=== PATIENT | male | born 1955 | race Caucasian/White ===

== ENCOUNTER 2020-09-10 10:07 | Outpatient (CLI) | payer MEDICARE, OTHER | END 2020-09-10 10:08 | disposition home or self-care (01) | LOC: BICRAD 10:07 | PROVIDERS: ATTEND Physician Assistant | DX: M25.561 Pain in right knee (principal); M25.562 Pain in left knee; M17.0 Bilateral primary osteoarthritis of knee ==

== ENCOUNTER 2020-10-12 08:05 | Outpatient (CLI) | payer MEDICARE, OTHER | END 2020-10-12 08:06 | disposition home or self-care (01) | LOC: BICULT 08:05 | PROVIDERS: ATTEND Physician Assistant | DX: Z13.6 Encounter for screening for cardiovascular disorders (principal); I71.4 Abdominal aortic aneurysm, without rupture | CPT/HCPCS: 76775 ==

== ENCOUNTER 2021-11-16 11:00 | Inpatient (IN) | payer MEDICARE, OTHER ==
[2021-11-18 13:13] LABS: #Eosinphils 0.2 10x3/uL (0.0-0.5); #Monocytes 0.4 10x3/uL (0.0-1.1); #Neutrophils 3.1 10x3/uL (1.5-8.4); %Basophils 0.3 % (0.0-2.0); %Eosinophils 3.3 % (0.0-6.0); %Lymphocytes 36.1 % (18.0-47.0); %Monocytes 7.4 % (0.0-10.0); %Neutrophils 52.6 % (40.0-75.0); Bilirubin Neg (Negative); Blood, Urine Negative (Negative); Clarity Clear (Clear); Glucose, Urine (Dipstick) Normal (Negative); Hemoglobin 14.7 g/dL (13.5-17.5); Ketone, Urine Negative (Negative); Leukocyte Negative (Negative); Mean Corpuscular HGB CONC 33.9 g/dL (32.0-36.0); Mean Corpuscular Hemoglobin 31.9 pg (27.0-33.0); Mean Corpuscular Volume 93.9 fl (81.2-95.1); Mean Platelet Volume 11.3 fl (7.4-10.4); Nitrite Negative (Negative); Platelet Count 156 10x3/uL (150-450); Protein, Urine (Dipstick) Negative (Neg-Trace); Red Blood Cell (RBC) Count 4.61 10x6/uL (4.32-5.72); Specific Gravity, Urine 1.025 (1.002-1.036); Urobilinogen Normal mg/dL (Less than 2); White Blood Cell (WBC) Count 5.8 10x3/uL (3.5-10.5)
[2021-11-18 13:26] LABS: Bacteria/HPF 1+ HPF (None Seen); Mucous/LPF 1+ LPF (<2+); RBC/HPF 0-3 HPF (0-3); Squamous Epithelial 0-3 HPF (0-3); WBC/HPF 0-3 HPF (0-3)
[2021-11-18 13:30] LABS: PTT 25.3 sec (22.0-33.0); Prothrombin Time 10.4 sec (9.5-12.1)
[2021-11-18 13:51] LABS: ALT (SGPT) 17 U/L (8-55); AST (SGOT) 16 U/L (5-34); Albumin 4.6 g/dL (3.4-4.8); Alkaline Phosphatase 51 U/L (40-110); Anion Gap 14 mmol/L (10-20); BUN (Urea Nitrogen) 12 mg/dL (8.4-25.7); Bilirubin, Total 0.6 mg/dL (0.2-1.2); Calc. Creatinine Clearance 0 mL/min (70-130); Calcium 9.5 mg/dL (7.8-10.44); Carbon Dioxide 25 mmol/L (23-31); Chloride 106 mmol/L (98-107); Globulin 2.2 g/dL (2.4-3.5); Glucose 93 mg/dL (80-115); Protein, Total 6.8 g/dL (5.8-8.1); Sodium 141 mmol/L (136-145)
[2021-11-23] MEDS ORDERED: SUGAMMADEX SODIUM 200 MG/2 ML VIAL ONE (06:57)
[2021-11-23] MEDS ORDERED: fentaNYL Citrate/PF 100 MCG/2 ML SYRINGE ONE (06:57)
[2021-11-23] MEDS ORDERED: HYDROmorphone 2 MG/ML VIAL ONE (06:57)
[2021-11-23] MEDS ORDERED: Phenylephrine 10 MG/ML VIAL ONE (06:57)
[2021-11-23] MEDS ORDERED: Levofloxacin 500 mg/D5W 100 ml Premix Bag ONE (07:06)
[2021-11-23] MEDS ORDERED: Sodium Chloride 0.9% 100 ML ONE (07:07)
[2021-11-23] MEDS ORDERED: B & O ONE (07:07)
[2021-11-23] MEDS ORDERED: ceFOXitin 1 GM VIAL ONE ×4 (07:07→13:29)
[2021-11-23] MEDS ORDERED: Ketamine 50 MG/ML (10ML VIAL) ONE (07:21)
[2021-11-23] MEDS ORDERED: Midazolam HCl 2 mg/2 ml Vial ONE (07:21)
[2021-11-23] MEDS ORDERED: Vecuronium 10 MG VIAL ONE (07:40)
[2021-11-23] MEDS ORDERED: Dexamethasone 20 MG/5 ML VIAL ONE (07:40)
[2021-11-23] MEDS ORDERED: Bupivacaine HCl 0.5%/Epinephrine 1:200,000/PF 30 ml Vial ONE (07:40)
[2021-11-23] MEDS ORDERED: PROPOFOL 200 MG/20 ML VIAL ONE (07:40)
[2021-11-23] MEDS ORDERED: Rocuronium Bromide 10 MG/ML (10ML VIAL) ONE (07:40)
[2021-11-23] MEDS ORDERED: Ondansetron PF 4 MG/2 ML Vial ONE (07:40)
[2021-11-23] MEDS ORDERED: Lidocaine 1% PF 5 ML VIAL ONE (07:40)
[2021-11-23] MEDS ORDERED: ePHEDrine 50 MG/ML VIAL ONE (07:40)
[2021-11-23] MEDS ORDERED: Bupivacaine 0.25% HCL 30 ML VIAL ONE (07:55)
[2021-11-23] MEDS ORDERED: Lidocaine 1% w/Epinephrine 1:100K 20 ML VIAL ONE (07:55)
[2021-11-23] MEDS ORDERED: Albumin 5% 250 ML ONE (13:11)
[2021-11-23] MEDS ORDERED: Promethazine HCl 25 MG/ML VIAL IVPB PRN (13:57)
[2021-11-23] MEDS ORDERED: Meperidine HCl/PF 25 MG/ML VIAL SLOW IVP PRN (13:57)
[2021-11-23] MEDS ORDERED: HYDROmorphone 2 MG/ML VIAL SLOW IVP PRN (13:57)
[2021-11-23] MEDS ORDERED: Ondansetron HCl/PF 4 MG/2 ML Vial IVP PRN (13:57)
[2021-11-23] MEDS ORDERED: HYDROcodone/Acetaminophen 10/325 mg Tablet PO PRN (14:36)
[2021-11-23] MEDS ORDERED: hydrALAZINE 20 MG/ML VIAL SLOW IVP PRN ×2 (14:36)
[2021-11-23] MEDS ORDERED: Morphine 2 MG/ML VIAL SLOW IVP PRN (14:36)
[2021-11-23] MEDS ORDERED: Oxybutynin 5 MG TAB PO PRN (14:36)
[2021-11-23] MEDS ORDERED: diphenhydrAMINE 50 MG/ML VIAL IVP PRN (14:36)
[2021-11-23] MEDS ORDERED: Acetaminophen 500 MG TAB PO PRN (14:36)
[2021-11-23] MEDS ORDERED: Phenazopyridine HCl 100 MG TAB PO PRN (14:47)
[2021-11-23] MEDS ORDERED: Fentanyl 100 MCG/2 ML VIAL ONE (14:47)
[2021-11-23 15:23] LABS: #Lymphocytes 0.6 thou/uL (1.20-3.40); #Monocytes 0.4 thou/uL (0.11-0.59); #Neutrophils 12.4 thou/uL (1.40-6.50); %Basophils 0.1 % (0.0-1.0); %Eosinophils 0.2 % (0.0-10.0); %Lymphocytes 4.5 % (21.0-51.0); %Monocytes 3.2 % (0.0-10.0); Mean Corpuscular HGB CONC 33.2 g/dL (32.0-36.0); Mean Corpuscular Hemoglobin 32.7 pg (27.0-31.0); Mean Corpuscular Volume 98.5 fL (78.0-98.0); Mean Platelet Volume 9.1 fL (7.4-10.4); Platelet Count 142 thou/uL (130-400); RBC Distribution Width 12.4 % (11.5-14.5); Red Blood Cell (RBC) Count 4.28 mill/uL (4.70-6.10); White Blood Cell (WBC) Count 13.5 thou/uL (4.8-10.8)
[2021-11-23 15:43] LABS: Anion Gap 16 mmol/L (10-20); BUN (Urea Nitrogen) 9 mg/dL (8.4-25.7); Calc. Creatinine Clearance 115 mL/min (70-130); Calcium 8.7 mg/dL (7.8-10.44); Carbon Dioxide 23 mmol/L (23-31); Chloride 107 mmol/L (98-107); Glucose 162 mg/dL (80-115); Potassium 4.1 mmol/L (3.5-5.1); Sodium 142 mmol/L (136-145)
[2021-11-23 16:44] VITALS: BMI 28.3
[2021-11-23] MEDS: Morphine 4 MG/ML VIAL SLOW IVP PRN ×2 (17:18→23:24)
[2021-11-23] MEDS: Sodium Chloride 0.9% 1,000 ML IV SCH ×2 (18:05→23:16)
[2021-11-23] MEDS: Ketotifen Fumarate 0.025% Ophth Soln 5 ml Bottle EA EYE PRN (18:30)
[2021-11-23] MEDS: Ondansetron PF 4 MG/2 ML Vial IVP PRN (19:23)
[2021-11-23] MEDS: Docusate 100 MG CAP PO SCH (20:27)
[2021-11-23] MEDS: Famotidine/PF 20 mg/2ml Vial SLOW IVP SCH (20:27)
[2021-11-24] MEDS: Morphine 4 MG/ML VIAL SLOW IVP PRN (04:11)
[2021-11-24] MEDS: Ketotifen Fumarate 0.025% Ophth Soln 5 ml Bottle EA EYE PRN (04:12)
[2021-11-24 05:30] LABS: #Lymphocytes 1.6 thou/uL (1.20-3.40); #Neutrophils 7.3 thou/uL (1.40-6.50); %Basophils 0.2 % (0.0-1.0); %Eosinophils 0.1 % (0.0-10.0); %Lymphocytes 15.9 % (21.0-51.0); %Monocytes 9.8 % (0.0-10.0); %Neutrophils 73.8 % (42.0-75.0); Hemoglobin 12.7 g/dL (14.0-18.0); Mean Corpuscular HGB CONC 32.3 g/dL (32.0-36.0); Mean Corpuscular Hemoglobin 32.6 pg (27.0-31.0); Platelet Count 131 thou/uL (130-400); RBC Distribution Width 12.6 % (11.5-14.5); White Blood Cell (WBC) Count 9.9 thou/uL (4.8-10.8)
[2021-11-24 05:36] LABS: Anion Gap 12 mmol/L (10-20); BUN (Urea Nitrogen) 9 mg/dL (8.4-25.7); Calc. Creatinine Clearance 122 mL/min (70-130); Calcium 8.8 mg/dL (7.8-10.44); Carbon Dioxide 27 mmol/L (23-31); Chloride 107 mmol/L (98-107); Glucose 113 mg/dL (80-115); Sodium 142 mmol/L (136-145)
[2021-11-24] MEDS: HYDROcodone/Acetaminophen 10/325 mg Tablet PO PRN ×5 (06:24→23:24)
[2021-11-24] MEDS: Sodium Chloride 0.9% 1,000 ML IV SCH (06:25)
[2021-11-24] MEDS: cefTRIAXone\\ROCEPHIN 1 GM in Sodium Chloride 0.9% 100 ML IVPB SCH (06:25)
[2021-11-24] MEDS: Famotidine/PF 20 mg/2ml Vial SLOW IVP SCH ×2 (08:25→20:18)
[2021-11-24] MEDS: Docusate 100 MG CAP PO SCH ×2 (08:25→20:18)
[2021-11-24] MEDS: Losartan 25 MG TAB PO SCH (08:25)
[2021-11-24] MEDS: Ketorolac Tromethamine 30 MG/ML VIAL IVP SCH ×3 (08:25→20:18)
[2021-11-25] MEDS: Ketorolac Tromethamine 30 MG/ML VIAL IVP SCH ×3 (01:06→15:01)
[2021-11-25] MEDS: cefTRIAXone\\ROCEPHIN 1 GM in Sodium Chloride 0.9% 100 ML IVPB SCH (06:12)
[2021-11-25] MEDS: HYDROcodone/Acetaminophen 10/325 mg Tablet PO PRN (06:12)
[2021-11-25 06:14] LABS: #Eosinphils 0.1 thou/uL (0.0-0.7); #Lymphocytes 1.9 thou/uL (1.20-3.40); #Monocytes 0.7 thou/uL (0.11-0.59); %Basophils 0.1 % (0.0-1.0); %Eosinophils 1.1 % (0.0-10.0); %Lymphocytes 19.5 % (21.0-51.0); %Monocytes 7.3 % (0.0-10.0); Hemoglobin 12.2 g/dL (14.0-18.0); Mean Corpuscular HGB CONC 33.3 g/dL (32.0-36.0); Mean Corpuscular Hemoglobin 33.6 pg (27.0-31.0); Mean Platelet Volume 8.9 fL (7.4-10.4); Platelet Count 120 thou/uL (130-400); RBC Distribution Width 12.4 % (11.5-14.5); Red Blood Cell (RBC) Count 3.64 mill/uL (4.70-6.10); White Blood Cell (WBC) Count 9.8 thou/uL (4.8-10.8)
[2021-11-25 06:53] LABS: Anion Gap 11 mmol/L (10-20); BUN (Urea Nitrogen) 8 mg/dL (8.4-25.7); Calc. Creatinine Clearance 129 mL/min (70-130); Calcium 8.5 mg/dL (7.8-10.44); Carbon Dioxide 29 mmol/L (23-31); Chloride 103 mmol/L (98-107); Glucose 114 mg/dL (80-115); Potassium 3.8 mmol/L (3.5-5.1); Sodium 139 mmol/L (136-145)
[2021-11-25] MEDS: Losartan 25 MG TAB PO SCH (09:15)
[2021-11-25] MEDS: Docusate 100 MG CAP PO SCH (09:15)
[2021-11-25] MEDS: Famotidine/PF 20 mg/2ml Vial SLOW IVP SCH (09:16)
[2021-11-25] MEDS: Ondansetron PF 4 MG/2 ML Vial IVP PRN (09:16)
[2021-11-25 17:34] VITALS: BP 136/88; TEMP 97.8
== END 2021-11-25 17:55 | disposition home or self-care (01) | DRG 708 ==
LOC: EDSTATUS 11-21 16:43 → SURG A 11-23 05:48
PROVIDERS: ADMIT Urology; ATTEND Urology
PROC: 0VT04ZZ Resection of Prostate, Percutaneous Endoscopic Approach (ICD-10-PCS; principal; 2021-11-23)
PROC: 0VT34ZZ Resection of Bilateral Seminal Vesicles, Percutaneous Endoscopic Approach (ICD-10-PCS; 2021-11-23)
PROC: 0DNW4ZZ Release Peritoneum, Percutaneous Endoscopic Approach (ICD-10-PCS; 2021-11-23)
PROC: 8E0W4CZ Robotic Assisted Procedure of Trunk Region, Percutaneous Endoscopic Approach (ICD-10-PCS; 2021-11-23)
PROC: 0VTQ4ZZ Resection of Bilateral Vas Deferens, Percutaneous Endoscopic Approach (ICD-10-PCS; 2021-11-23)
DX: C61 Malignant neoplasm of prostate (principal); Z20.822 Contact with and (suspected) exposure to COVID-19; E66.01 Morbid (severe) obesity due to excess calories; K66.0 Peritoneal adhesions (postprocedural) (postinfection); I10 Essential (primary) hypertension; R35.1 Nocturia; N40.0 Benign prostatic hyperplasia without lower urinary tract symptoms; Z90.49 Acquired absence of other specified parts of digestive tract; Z68.28 Body mass index [BMI] 28.0-28.9, adult; Z79.899 Other long term (current) drug therapy; Z87.891 Personal history of nicotine dependence
CPT/HCPCS: 36415; 80048; 80053; 81001; 82570; 85025; 85610; 85730; 86850; 86900; 86901; 87086; 88305; 88309; 88341; 88342; C1713; C1776; J0694; J0696; J1100; J1170; J1885; J1956; J2250; J2270; J2370; J2405; J2704; J3010; J3490; J7050; P9045; S0020; S0028; U0003; U0005

== ENCOUNTER 2021-11-18 11:58 | Outpatient (CLI) | payer MEDICARE, OTHER | END 2021-11-18 11:59 | disposition home or self-care (01) | LOC: LABBT 11:58 | PROVIDERS: ATTEND Urology | DX: Z01.818 Encounter for other preprocedural examination (principal); C61 Malignant neoplasm of prostate; R97.20 Elevated prostate specific antigen [PSA]; I10 Essential (primary) hypertension; Z12.5 Encounter for screening for malignant neoplasm of prostate; Z87.891 Personal history of nicotine dependence; R35.1 Nocturia; M54.50 Low back pain, unspecified; N40.0 Benign prostatic hyperplasia without lower urinary tract symptoms | CPT/HCPCS: 71046; 93005; 93010 ==

== ENCOUNTER 2021-12-07 08:33 | Outpatient (CLI) | payer MEDICARE, OTHER | END 2021-12-07 08:34 | disposition home or self-care (01) | LOC: RAD 08:33 | PROVIDERS: ATTEND Urology | DX: C61 Malignant neoplasm of prostate (principal); Z90.79 Acquired absence of other genital organ(s) | CPT/HCPCS: 51600; 74430 ==

== ENCOUNTER 2022-08-21 07:31 | Outpatient (CLI) | payer MEDICARE, OTHER | END 2022-08-21 07:32 | disposition home or self-care (01) | LOC: TBSIIMAG 07:31 | PROVIDERS: ATTEND Orthopaedic Surgery | DX: M75.101 Unspecified rotator cuff tear or rupture of right shoulder, not specified as traumatic (principal); M75.121 Complete rotator cuff tear or rupture of right shoulder, not specified as traumatic; M62.511 Muscle wasting and atrophy, not elsewhere classified, right shoulder; S43.431A Superior glenoid labrum lesion of right shoulder, initial encounter; S46.811A Strain of other muscles, fascia and tendons at shoulder and upper arm level, right arm, initial encounter; S46.211A Strain of muscle, fascia and tendon of other parts of biceps, right arm, initial encounter; M25.411 Effusion, right shoulder ==

== ENCOUNTER 2023-02-19 08:02 | Outpatient (CLI) | payer MEDICARE | END 2023-02-19 08:03 | disposition home or self-care (01) | LOC: MRI 08:02 | PROVIDERS: ATTEND Family Medicine | DX: M47.22 Other spondylosis with radiculopathy, cervical region (principal); G89.4 Chronic pain syndrome; M48.02 Spinal stenosis, cervical region | CPT/HCPCS: 72141 ==

== ENCOUNTER 2023-02-19 08:25 | Outpatient (CLI) | payer MEDICARE | END 2023-02-19 08:26 | disposition home or self-care (01) | LOC: RAD 08:25 | PROVIDERS: ATTEND Family Medicine | DX: M47.22 Other spondylosis with radiculopathy, cervical region (principal); G89.4 Chronic pain syndrome | CPT/HCPCS: 72040; 72141 ==

== ENCOUNTER 2024-05-23 08:12 | Outpatient (CLI) | payer MEDICARE | END 2024-05-23 08:13 | disposition home or self-care (01) | LOC: BICMAMMO 08:12 | PROVIDERS: ATTEND Family Medicine | DX: N63.22 Unspecified lump in the left breast, upper inner quadrant (principal) | CPT/HCPCS: 77066; G0279 ==

== ENCOUNTER 2025-06-02 09:39 | Outpatient (CLI) | payer MEDICARE | END 2025-06-02 09:40 | disposition home or self-care (01) | LOC: BICRAD 09:39 | PROVIDERS: ATTEND Family Medicine | DX: M79.605 Pain in left leg (principal); M19.072 Primary osteoarthritis, left ankle and foot; M17.12 Unilateral primary osteoarthritis, left knee ==